=== PATIENT | female | born 1960 | race Two or more races ===

== ENCOUNTER → 2022-08-26 | Outpatient (CLI) | payer OTHER ==
--- NOTE | 2022-08-26 14:05 | XR ---
EXAMINATION TYPE: XR chest 2V DATE OF EXAM: 08/26/2022 COMPARISON: NONE TECHNIQUE: PA and lateral views submitted. HISTORY: Preop hysterectomy FINDINGS: The lungs are clear and there is no pneumothorax, pleural effusion, or focal pneumonia. Heart size normal and no overt failure. Osseous structures demonstrate hypertrophic and degenerative changes of the spine. There is previous cardiac loop recorder placement and cardiac device. IMPRESSION: 1. No acute process.
--- NOTE | 2022-08-27 10:12 | CT ---
EXAMINATION TYPE: CT ChestAbdPelvis w con CT DLP: 2429.4 mGycm, Automated exposure control for dose reduction was used. DATE OF EXAM: 08/26/2022 4:09 PM COMPARISON: Chest radiograph from 08/29/2022 CLINICAL INDICATION:Female, 61 years old with history of C54.1; PHH, Endometrial CA, Pre- hysterectom y. Technique: Multiple axial images of the chest, abdomen, and pelvis were obtained following the intrav enous administration of 100 mL Isovue-300. Oral contrast administered. Two-dimensional coronal and sa gittal reconstructions were obtained. Findings: CHEST: LUNGS/ PLEURA: The lung parenchyma appears unremarkable. No suspicious pulmonary nodule or mass. AIRWAY: Patent and unremarkable.. HEART: Mildly enlarged. Trace pericardial effusion. MEDIASTINUM: No evidence of adenopathy. VASCULATURE: No aortic aneurysm. Left chest wall cardiac pacemaking device. MUSCULOSKELETAL: No acute osseous abnormalities. No aggressive osseous lesion. SOFT TISSUES/LYMPH NODES: Loop recorder in the left anterior chest soft tissues. LOWER NECK: Subcentimeter hypodense nodule within the left thyroid lobe.. ABDOMEN: ABDOMEN LIVER: A couple of subcentimeter hypodense foci which are too small to characterize. GALLBLADDER AND BILE DUCTS: Unremarkable. PANCREAS: Unremarkable. SPLEEN: Unremarkable. ADRENAL GLANDS: Unremarkable. KIDNEYS AND URETERS: No evidence of hydronephrosis or renal calculus. The kidneys enhance symmetrical ly without suspicious focal lesion. Contrast is demonstrated within both collecting systems on the de layed phase. PELVIS BLADDER: Incompletely distended but grossly unremarkable. REPRODUCTIVE: Thickened endometrium measuring up to 2.1 cm consistent with known endometrial carcinom a. ABDOMEN & PELVIS STOMACH AND BOWEL: Small hiatal hernia with some eccentric wall thickening at the GE junction. No foc al bowel wall thickening or surrounding inflammatory changes. Enteric contrast reaches the descending colon. No evidence of bowel obstruction. PERITONEUM: No evidence of pneumoperitoneum or free fluid. VASCULATURE: No evidence of aortic aneurysm. MUSCULOSKELETAL: No acute osseous abnormalities. No aggressive osseous lesion. Mild degenerative nolasco ges of the lumbar spine most pronounced at L5-S1. LYMPH NODES: No evidence for lymphadenopathy. SOFT TISSUE/ABDOMINAL WALL: Small fat filled umbilical hernia. IMPRESSION: 1. Thickened endometrium measuring up to 2.1 cm consistent with known endometrial carcinoma. 2. No evidence for metastatic disease within the chest. 3. No pathologic lymphadenopathy within the chest, abdomen or pelvis. 4. Small hiatal hernia with eccentric wall thickening at the GE junction. This could be related to ga stroesophageal reflux disease however underlying malignancy is not excluded. Consider further evaluat ion with direct visualization.
== END | disposition home or self-care (01) ==
LOC: RADCTMAIN 13:43
PROVIDERS: ATTEND Obstetrics & Gynecology
DX: Z01.818 Encounter for other preprocedural examination (principal); C54.1 Malignant neoplasm of endometrium
CPT/HCPCS: 71046; 71260; 74177; Q9967